=== PATIENT | female | born 1995 | race Caucasian/White ===

== ENCOUNTER 2016-05-06 11:30 | Emergency (ER) | payer MEDICAID ==
[~2016-05-06] VITALS: Ht 157.5 cm; Wt 39.4 kg
[2016-05-06 11:37] VITALS: BP 124/77
[2016-05-06] MEDS ORDERED: KETOROLAC 30 MG/1 ML ONE (12:05)
[2016-05-06] MEDS ORDERED: KETOROLAC 30 MG/1 ML IM ONE (12:30)
== END 2016-05-06 12:49 | disposition home or self-care (01) ==
LOC: ED 12:43
DX: M94.0 Chondrocostal junction syndrome [Tietze] (principal); F17.200 Nicotine dependence, unspecified, uncomplicated
CPT/HCPCS: 71020; 96372; 99284; J1885